=== PATIENT | female | born 1950 | race Caucasian/White ===

== ENCOUNTER 2022-12-20 17:39 | Observation (INO) ==
[2022-12-20] MEDS ORDERED: IOPAMIDOL 100 ML BOTTLE IV ONE (17:40)
--- NOTE | 2022-12-20 18:08 | Emergency Department Note ---
HPI General Chief complaint: Dizziness Stated complaint: Dizziness Time Seen by Provider: 12/20/22 17:50 Source: patient Mode of arrival: ambulatory Limitations: no limitations History of Present Illness HPI Narrative: Narrative: Patient is a 72 year old female with a history of hypertension and hypercholesterolemia who presents to the emergency department due to vertigo. She states that at noon she began to feel like she was on a boat. She states that it felt like she was moving even when she wasn't. She had an episode like this 3 weeks ago, but it went away. She states that because it happened again today she decided to come to the emergency department. It seemed to start when she turned her head, and starts to go away when she is lying still. She states that otherwise it seems to be pretty constant. She denies any other symptoms. Related Data Home Medications Medication Instructions Recorded Confirmed levothyroxine 25 mcg capsule 25 mcg PO QDAY 08/17/21 11/09/22 losartan 50 mg-hydrochlorothiazide 1 tab PO QDAY 08/17/21 11/09/22 12.5 mg tablet escitalopram oxalate 10 mg tablet mg PO 11/18/21 11/09/22 simvastatin 20 mg tablet 20 mg PO QDAY cholesterol 11/18/21 11/09/22 Previous Rx's Medication Instructions Recorded albuterol sulfate 90 mcg/actuation 2 puff inhalation Q6H PRN cough, 11/09/22 aerosol inhaler (ProAir HFA) shortness of breath, wheezing #8.5 grams Allergies Allergy/AdvReac Type Severity Reaction Status Date / Time codeine Allergy Unknown Unknown Verified 12/20/22 17:45 Sulfa (Sulfonamide Allergy Unknown Unknown Verified 12/20/22 17:45 Antibiotics) Review of Systems ROS ROS Narrative: Narrative: Constitutional: Denies fever or weakness Eyes: Denies vision change ENT ED: Denies throat pain, hearing loss or rhinorrhea Cardiovascular: Denies chest pain or palpitations Respiratory: Denies shortness of breath or cough Gastrointestinal: Denies abdominal pain, nausea, vomiting, diarrhea, constipation, hematochezia or melena Musculoskeletal: Denies back pain or myalgia Integumentary: Denies rash or lesions Neurological: Reports dizziness; Denies headache, weakness, numbness, confusion or abnormal gait PFS Narrative Patient History Narrative: Narrative: Medical/Surgical/Family History All Active Problems (Updated 12/20/22 @ 19:27 by Shubham Kumari DO) Brain TIA (Acute) Dizziness (Acute) Left acute otitis media (Acute) Cellulitis (Acute) Dog bite (Acute) Medical History Cellulitis Dog bite Social History Smoking Status: Former smoker Exam Narrative Narrative: Narrative: General Limitations: no limitations General appearance: Present alert and in no apparent distress; Absent anxious, appears intoxicated or sleepy Head Head: Present atraumatic and normocephalic Eye Eye: Present PERRL, EOMI and visual butt intact; Absent scleral icterus or nystagmus ENT ENT: Present mucous membranes moist; Absent nasal congestion Neck Neck: Present full ROM and trachea midline Chest Chest: Present normal inspection and symmetric chest wall rise Respiratory Respiratory: Present normal lung sounds bilaterally; Absent respiratory distress, rales/crackles, wheezes, stridor or accessory muscle use Cardiovascular Cardiovascular: Present regular rate, normal rhythm and normal heart sounds Adbominal Abdominal: Present soft; Absent distention Extremities Extremities: Present normal inspection and full ROM; Absent pedal edema or pretibial edema Back Back: Present normal inspection and full ROM Neurological Neurological: Present alert, oriented X3, CN II-XII intact, normal gait, reflexes normal and other (Negative test of skew, no nystagmus, no ataxia); Absent motor sensory deficit Psychiatric Psychiatric: Present normal affect and normal mood Skin Skin: Present warm (WNL), dry and normal color Course Vital Signs Vital signs: Vital Signs Temperature 98.2 F 12/20/22 17:43 Pulse Rate 64 12/20/22 17:43 Respiratory Rate 20 12/20/22 17:43 Blood Pressure 158/85 12/20/22 17:43 Pulse Oximetry (%) 98 12/20/22 17:43 Oxygen Delivery Method Room Air 12/20/22 17:43 Temperature 98.2 F 12/20/22 17:43 Pulse Rate 59 L 12/20/22 18:57 Respiratory Rate 20 12/20/22 17:43 Blood Pressure 127/75 12/20/22 19:01 Pulse Oximetry (%) 92 12/20/22 18:57 Oxygen Delivery Method Room Air 12/20/22 18:16 [facility] MDM Narrative Medical decision making narrative: Narrative: Patient is a 72 year old female presenting to the emergency department for dizziness. A stroke alert was called given onset of symptoms 6 hours prior to arrival. I did speak with telestroke and they recommended admission for MRI and echocardiogram after ED work-up. They also recommended aspirin and plavix. CT head is negative for acute findings. CT angio head and neck are also negative for acute findings. Initial labs are unremarkable. Patient has been signed out to Dr. Kumari. Lab Data 12/20/22 18:30 Labs: Lab Results 12/20/22 12/20/22 12/20/22 Range/Units 18:28 18:29 18:30 WBC 8.0 (4.5-11.0) K/mcL RBC 4.38 (3.59-5.38) M/mcL Hgb 13.3 (11.2-15.7) g/dL Hct 39.0 (34.1-44.9) % POC Hct 39.0 (36-48) MCV 89.0 (80.0-100.0) fL MCH 30.4 (26.0-34.0) pg MCHC 34.1 (31.0-36.0) g/dL RDW 13.2 (11.5-14.5) % Plt Count 155 (140-440) K/mcL MPV 9.7 (8.8-12.5) fL Immature Gran % (Auto) 0.1 (0.0-0.5) % Neut % (Auto) 36.0 L (38.0-78.0) % Lymph % (Auto) 57.2 H (15.5-49.0) % [place] % (Auto) 4.2 (1.0-12.0) % Eos % (Auto) 1.9 (0.0-7.0) % Baso % (Auto) 0.6 (0.0-2.0) % Lymph # (Auto) 4.60 (1.50-4.80) K/mcL [place] # (Auto) 0.34 (0.10-0.90) K/mcL Eos # (Auto) 0.15 (0.00-0.70) K/mcL Baso # (Auto) 0.05 (0.00-0.30) K/mcL Immature Gran # 0.01 (0.00-0.05) K/mcl Absolute Neutrophils 2.89 (1.80-8.00) K/mcL APTT (20.0-37.0) sec POC Sodium 140 (133-145) POC Potassium 3.9 (3.3-5.1) POC Chloride 103 (96-108) POC Total CO2 26.0 (22-30) POC BUN 22 H (6-20) POC Creatinine 1.1 (0.6-1.2) POC Glucose 97 (70-105) POC WB Ioniz Calcium 1.12 L (1.16-1.32) POC Troponin I < 0.02 (0.00-0.08) 12/20/22 Range/Units 18:30 WBC (4.5-11.0) K/mcL RBC (3.59-5.38) M/mcL Hgb (11.2-15.7) g/dL Hct (34.1-44.9) % POC Hct (36-48) MCV (80.0-100.0) fL MCH (26.0-34.0) pg MCHC (31.0-36.0) g/dL RDW (11.5-14.5) % Plt Count (140-440) K/mcL MPV (8.8-12.5) fL Immature Gran % (Auto) (0.0-0.5) % Neut % (Auto) (38.0-78.0) % Lymph % (Auto) (15.5-49.0) % [place] % (Auto) (1.0-12.0) % Eos % (Auto) (0.0-7.0) % Baso % (Auto) (0.0-2.0) % Lymph # (Auto) (1.50-4.80) K/mcL [place] # (Auto) (0.10-0.90) K/mcL Eos # (Auto) (0.00-0.70) K/mcL Baso # (Auto) (0.00-0.30) K/mcL Immature Gran # (0.00-0.05) K/mcl Absolute Neutrophils (1.80-8.00) K/mcL APTT 30.0 (20.0-37.0) sec POC Sodium (133-145) POC Potassium (3.3-5.1) POC Chloride (96-108) POC Total CO2 (22-30) POC BUN (6-20) POC Creatinine (0.6-1.2) POC Glucose (70-105) POC WB Ioniz Calcium (1.16-1.32) POC Troponin I (0.00-0.08) Discharge Plan Patient/Caregiver Discharge Instructions Pt seen by SEMICONDUCTOR DIES LOADER/PA only: No Clinical Impression: Brain TIA, Dizziness Patient Disposition: Still a Patient Condition: Good Follow up with: Usman Cowan [Primary Care Provider] - Prescriptions: No Action levothyroxine 25 mcg capsule 25 mcg PO QDAY losartan-hydrochlorothiazide 50-12.5 mg tablet 1 tab PO QDAY escitalopram oxalate 10 mg tablet PO simvastatin 20 mg tablet 20 mg PO QDAY albuterol sulfate [ProAir HFA] 90 mcg/actuation HFA aerosol inhaler 2 puff inhalation Q6H PRN (Reason: cough, shortness of breath, wheezing) Qty: 8.5 0RF Rx Instructions: administer with spacer
--- NOTE | 2022-12-20 18:26 | Cat Scan Report ---
CLINICAL INFORMATION: Code stroke COMPARISON: None. TECHNIQUE: 2.5 mm helical slices were obtained in the skull base to vertex. Following reconstruction, axial reformatted images were reviewed at bone and parenchymal windows. The exam was performed using radiation dose optimization techniques including, but not limited to, automated exposure control, adjustment of the mA and/or kV according to patient size and use of iterative reconstruction technique. FINDINGS: The ventricles, sulci, fissures, and cisterns are symmetrically enlarged compatible with mild age-related atrophy. No extra-axial fluid collections are identified. Mild patchy chronic ischemic changes, in the deep cerebral white matter, are expected for age. There is no hemorrhage, mass effect, or edema. Bone windows show no osseous abnormality. IMPRESSION: Mild atrophy and chronic ischemic changes in the deep cerebral white matter-expected for age. No acute findings Complete opacification of sphenoid sinus compatible with sphenoid sinusitis-new from [address] Interpreted and Authenticated by: Ghanshyam Taylor 12/20/22
[2022-12-20 18:34] LABS: POC Calcium, Ionized 1.12 (1.16-1.32); POC Creatinine 1.1 (0.6-1.2); POC Potassium 3.9 (3.3-5.1)
[2022-12-20 19:14] LABS: Basophils # (Auto) 0.05 K/mcL (0.00-0.30); Basophils % (Auto) 0.6 % (0.0-2.0); Eosinophils # (Auto) 0.15 K/mcL (0.00-0.70); Eosinophils % (Auto) 1.9 % (0.0-7.0); Hemoglobin 13.3 g/dL (11.2-15.7); Lymphocytes % (Auto) 57.2 % (15.5-49.0); Mean Corpuscular HGB Conc 34.1 g/dL (31.0-36.0); Mean Platelet Volume 9.7 fL (8.8-12.5); Monocytes # (Auto) 0.34 K/mcL (0.10-0.90); Monocytes % (Auto) 4.2 % (1.0-12.0); Platelet Count 155 K/mcL (140-440); RBC 4.38 M/mcL (3.59-5.38); Red Cell Distribution Width 13.2 % (11.5-14.5)
[2022-12-20 19:25] LABS: ALT/SGPT 10 U/L (<40); AST/SGOT 14 U/L (<32); Albumin 3.7 gm/dL (3.2-5.2); Alkaline Phosphatase 78 U/L (39-117); Bilirubin,Direct < 0.2 mg/dL (0-0.3); Bilirubin,Total 0.6 mg/dL (0.1-1.0); Globulin 3.2 gm/dL (2.2-3.7)
--- NOTE | 2022-12-20 19:27 | Emergency Department Note ---
Course Course Course Narrative: I assumed care of patient at 1900 pending discussion with hospitalist for possible admission. Case was discussed with hospitalist, Dr. Nunez, who has agreed to admit the patient for TIA as she will need a MRI and fasting lipid panels. Vital Signs Vital signs: Vital Signs Temperature 98.2 F 12/20/22 17:43 Pulse Rate 64 12/20/22 17:43 Respiratory Rate 20 12/20/22 17:43 Blood Pressure 158/85 12/20/22 17:43 Pulse Oximetry (%) 98 12/20/22 17:43 Oxygen Delivery Method Room Air 12/20/22 17:43 Temperature 98.2 F 12/20/22 17:43 Pulse Rate 59 L 12/20/22 18:57 Respiratory Rate 20 12/20/22 17:43 Blood Pressure 127/75 12/20/22 19:01 Pulse Oximetry (%) 92 12/20/22 18:57 Oxygen Delivery Method Room Air 12/20/22 18:16 MDM MDM Narrative Medical decision making narrative: Narrative: Differential Diagnosis Differential Diagnosis: TIA, dizziness Medical Records Medical records reviewed: Yes I reviewed the patient's medical records. Lab Data Lab results reviewed: Yes I reviewed the patient's lab results. 12/20/22 18:30 Labs: Lab Results 12/20/22 12/20/22 12/20/22 Range/Units 18:28 18:29 18:30 WBC 8.0 (4.5-11.0) K/mcL RBC 4.38 (3.59-5.38) M/mcL Hgb 13.3 (11.2-15.7) g/dL Hct 39.0 (34.1-44.9) % POC Hct 39.0 (36-48) MCV 89.0 (80.0-100.0) fL MCH 30.4 (26.0-34.0) pg MCHC 34.1 (31.0-36.0) g/dL RDW 13.2 (11.5-14.5) % Plt Count 155 (140-440) K/mcL MPV 9.7 (8.8-12.5) fL Immature Gran % (Auto) 0.1 (0.0-0.5) % Neut % (Auto) 36.0 L (38.0-78.0) % Lymph % (Auto) 57.2 H (15.5-49.0) % [place] % (Auto) 4.2 (1.0-12.0) % Eos % (Auto) 1.9 (0.0-7.0) % Baso % (Auto) 0.6 (0.0-2.0) % Lymph # (Auto) 4.60 (1.50-4.80) K/mcL [place] # (Auto) 0.34 (0.10-0.90) K/mcL Eos # (Auto) 0.15 (0.00-0.70) K/mcL Baso # (Auto) 0.05 (0.00-0.30) K/mcL Immature Gran # 0.01 (0.00-0.05) K/mcl Absolute Neutrophils 2.89 (1.80-8.00) K/mcL APTT (20.0-37.0) sec POC Sodium 140 (133-145) POC Potassium 3.9 (3.3-5.1) POC Chloride 103 (96-108) POC Total CO2 26.0 (22-30) POC BUN 22 H (6-20) POC Creatinine 1.1 (0.6-1.2) POC Glucose 97 (70-105) POC WB Ioniz Calcium 1.12 L (1.16-1.32) Total Bilirubin (0.1-1.0) mg/dL Direct Bilirubin (0-0.3) mg/dL AST (<32) U/L ALT (<40) U/L Alkaline Phosphatase (39-117) U/L Total Protein (5.9-8.4) gm/dL Albumin (3.2-5.2) gm/dL Globulin (2.2-3.7) gm/dL POC Troponin I < 0.02 (0.00-0.08) 12/20/22 12/20/22 Range/Units 18:30 18:30 WBC (4.5-11.0) K/mcL RBC (3.59-5.38) M/mcL Hgb (11.2-15.7) g/dL Hct (34.1-44.9) % POC Hct (36-48) MCV (80.0-100.0) fL MCH (26.0-34.0) pg MCHC (31.0-36.0) g/dL RDW (11.5-14.5) % Plt Count (140-440) K/mcL MPV (8.8-12.5) fL Immature Gran % (Auto) (0.0-0.5) % Neut % (Auto) (38.0-78.0) % Lymph % (Auto) (15.5-49.0) % [place] % (Auto) (1.0-12.0) % Eos % (Auto) (0.0-7.0) % Baso % (Auto) (0.0-2.0) % Lymph # (Auto) (1.50-4.80) K/mcL [place] # (Auto) (0.10-0.90) K/mcL Eos # (Auto) (0.00-0.70) K/mcL Baso # (Auto) (0.00-0.30) K/mcL Immature Gran # (0.00-0.05) K/mcl Absolute Neutrophils (1.80-8.00) K/mcL APTT 30.0 (20.0-37.0) sec POC Sodium (133-145) POC Potassium (3.3-5.1) POC Chloride (96-108) POC Total CO2 (22-30) POC BUN (6-20) POC Creatinine (0.6-1.2) POC Glucose (70-105) POC WB Ioniz Calcium (1.16-1.32) Total Bilirubin 0.6 (0.1-1.0) mg/dL Direct Bilirubin < 0.2 (0-0.3) mg/dL AST 14 (<32) U/L ALT 10 (<40) U/L Alkaline Phosphatase 78 (39-117) U/L Total Protein 6.9 (5.9-8.4) gm/dL Albumin 3.7 (3.2-5.2) gm/dL Globulin 3.2 (2.2-3.7) gm/dL POC Troponin I (0.00-0.08) Radiology Data Radiology results reviewed: Yes I reviewed the patient's radiology results. Radiology results narrative: CTA of the head and neck obtained with image reviewed myself, no acute findings Core Measures AMI Core Measures Followed: Yes Discharge Plan Patient/Caregiver Discharge Instructions Pt seen by DIRECTOR OF VOCATIONAL GUIDANCE/PA only: No Clinical Impression: Brain TIA, Dizziness Patient Disposition: Xfer As Outpt/Obs ([facility]) Condition: Good Follow up with: Usman Cwoan [Primary Care Provider] - Prescriptions: No Action levothyroxine 25 mcg capsule 25 mcg PO QDAY losartan-hydrochlorothiazide 50-12.5 mg tablet 1 tab PO QDAY escitalopram oxalate 10 mg tablet PO simvastatin 20 mg tablet 20 mg PO QDAY albuterol sulfate [ProAir HFA] 90 mcg/actuation HFA aerosol inhaler 2 puff inhalation Q6H PRN (Reason: cough, shortness of breath, wheezing) Qty: 8.5 0RF Rx Instructions: administer with spacer
[2022-12-20 20:52] LABS: Appearance,Urine HAZY (Clear); Bilirubin,Urine Negative (Negative); Color,Urine YELLOW; Culture Indicated,Urine yes; Glucose,Urine (UA) Negative (Negative); Ketones,Urine Negative (Negative); Leukocyte Esterase,Urine 500 /uL (Negative); Nitrate,Urine Negative (Negative); Protein,Urine Negative (Negative); Specific Gravity,Urine 1.051 (1.000-1.035); Urine Blood Negative (Negative); Urine RBC 4 /hpf (0-3); Urine Squamous Epithelial Cell 4 /hpf (0-4); Urine WBC 33 /hpf (0-4); Urobilinogen,Urine Negative
--- NOTE | 2022-12-20 20:57 | Internal Med History&Physical ---
HPI History of Present Illness Patient information: Note initiated : 12/20/22 at 8:56 pm Service Date, if different from initiated Date: [] Patient: Liz Trujillo 72 y/o F admitted on for Dizziness. Chief Complaint: [] History of present illness: Ms. Trujillo is a 72 year old female with a history of hypertension, hyperlipidemia, hypothyroidism, depression who presented to the emergency department after experiencing difficulty walking. The patient says that her symptoms began about 12:30 PM today and persisted until she was in the emergency department. Her gait difficulties gradually improved but did not resolve after several hours prompting her decision to go to the emergency department. The patient said that she had a similar episode 2 to 3 weeks ago that only lasted an hour. In the emergency department, the patient underwent a stroke work-up with CT head without contrast that did not show any acute changes, CTA head and neck for which report is still pending at the time of admission however the ED provider says that there are no acute changes. Stroke neurology was consulted, reviewed the work-up and recommended admission for an MRI brain, echocardiogram, cardiac/vascular sonographer and consideration of benign paroxysmal positional vertigo if the stroke work-up was negative. Hospital medicine was consulted for admission. At the time of admission the patient was back to her baseline. Review of systems Constitutional: no fever, fatigue, or weight loss Eyes: no vision changes or pain Cardiovascular: no chest pain, no palpitations Respiratory: no cough or dyspnea Gastrointestinal: no abdominal pain, no nausea, vomiting, or diarrhea Genitourinary: no dysuria or difficulty voiding Musculoskeletal: no arthralgia or myalgia Integumentary: no skin lesion or wound Neurological: Resolved gait disturbance, no focal weakness or sensory deficits Psychiatric: no anxiety or depression Physical exam Head: Atraumatic, normal inspection. Eyes: normal appearance, no scleral icterus. Neck: full ROM Respiratory: no respiratory distress. Cardiovascular: normal rate and rhythm, S1, S2. GI/Abdominal: soft, nontender, no guarding. Extremities: full range of motion, nontender. Neurological: CN II-XII intact, intact motor, intact sensation. Psychiatric: normal mood. Skin: warm, normal color PFSH PFSH All Active Problems (Updated 12/20/22 @ 19:27 by Shubham Kumari DO) Brain TIA (Acute) Dizziness (Acute) Left acute otitis media (Acute) Cellulitis (Acute) Dog bite (Acute) Medical History Cellulitis Dog bite Social History smoking status: Former smoker MEDS/ALLERGIES Home Medications and Allergies Home Medications Medication Instructions Recorded Confirmed Type levothyroxine 25 mcg capsule 25 mcg PO QDAY 08/17/21 11/09/22 History losartan 50 mg-hydrochlorothiazide 1 tab PO QDAY 08/17/21 11/09/22 History 12.5 mg tablet escitalopram oxalate 10 mg tablet mg PO 11/18/21 11/09/22 History simvastatin 20 mg tablet 20 mg PO QDAY cholesterol 11/18/21 11/09/22 History albuterol sulfate 90 mcg/actuation 2 puff inhalation Q6H PRN cough, 11/09/22 11/09/22 Rx aerosol inhaler (ProAir HFA) shortness of breath, wheezing #8.5 grams Allergies Allergy/AdvReac Type Severity Reaction Status Date / Time codeine Allergy Unknown Unknown Verified 12/20/22 17:45 Sulfa (Sulfonamide Allergy Unknown Unknown Verified 12/20/22 17:45 Antibiotics) EXAM Constitutional Vitals: Temp Pulse Resp BP Pulse Ox O2 Del Method 98.2 F 67 16 153/87 97 Room Air 12/20/22 17:43 12/20/22 20:49 12/20/22 20:49 12/20/22 20:49 12/20/22 20:49 12/20/22 18:16 DATA Data Completed and Pending Labs: Labs from last 24 hours 12/20/22 12/20/22 12/20/22 19:46 18:30 18:30 WBC RBC Hgb Hct POC Hct MCV MCH MCHC RDW Plt Count MPV Immature Gran % (Auto) Neut % (Auto) Lymph % (Auto) [place] % (Auto) Eos % (Auto) Baso % (Auto) Lymph # (Auto) [place] # (Auto) Eos # (Auto) Baso # (Auto) Immature Gran # Absolute Neutrophils APTT 30.0 POC Sodium POC Potassium POC Chloride POC Total CO2 POC BUN POC Creatinine POC Glucose POC WB Ioniz Calcium Total Bilirubin 0.6 Direct Bilirubin < 0.2 AST 14 ALT 10 Alkaline Phosphatase 78 Total Protein 6.9 Albumin 3.7 Globulin 3.2 Urine Color Yellow Urine Appearance Hazy A Urine pH 5.0 Ur Specific [place] 1.051 Urine Protein Negative Urine Glucose (UA) Negative Urine Ketones Negative Urine Occult Blood Negative Urine Nitrate Negative Urine Bilirubin Negative Urine Urobilinogen Negative Ur Leukocyte Esterase 500 A Urine RBC 4 H Urine WBC 33 H Ur Squamous Epith Cells 4 Urine Bacteria None Ur Culture Indicated? yes POC Troponin I 12/20/22 12/20/22 12/20/22 18:30 18:29 18:28 WBC 8.0 RBC 4.38 Hgb 13.3 Hct 39.0 POC Hct 39.0 MCV 89.0 MCH 30.4 MCHC 34.1 RDW 13.2 Plt Count 155 MPV 9.7 Immature Gran % (Auto) 0.1 Neut % (Auto) 36.0 L Lymph % (Auto) 57.2 H [place] % (Auto) 4.2 Eos % (Auto) 1.9 Baso % (Auto) 0.6 Lymph # (Auto) 4.60 [place] # (Auto) 0.34 Eos # (Auto) 0.15 Baso # (Auto) 0.05 Immature Gran # 0.01 Absolute Neutrophils 2.89 APTT POC Sodium 140 POC Potassium 3.9 POC Chloride 103 POC Total CO2 26.0 POC BUN 22 H POC Creatinine 1.1 POC Glucose 97 POC WB Ioniz Calcium 1.12 L Total Bilirubin Direct Bilirubin AST ALT Alkaline Phosphatase Total Protein Albumin Globulin Urine Color Urine Appearance Urine pH Ur Specific [place] Urine Protein Urine Glucose (UA) Urine Ketones Urine Occult Blood Urine Nitrate Urine Bilirubin Urine Urobilinogen Ur Leukocyte Esterase Urine RBC Urine WBC Ur Squamous Epith Cells Urine Bacteria Ur Culture Indicated? POC Troponin I < 0.02 A/P Narrative A/P Narrative: Assessment: 72 year old female with a history of hypertension, hyperlipidemia, hypothyroidism, depression admitted for a TIA work-up. #Possible TIA versus less likely acute ischemic stroke #Hypertension #Hyperlipidemia #Depression Plan -Start aspirin 81 mg daily. -Start atorvastatin 80 mg daily. -MRI brain. -Echocardiogram. -conveyor monitor. -Neurochecks every 4 hours. -Home medication reconciliation, continue important meds. -Regular diet. -CODE STATUS: Full -Disposition: Observation PCU for close monitoring, frequent neurochecks. Time Spent With Patient Time: Total time spent is greater than 50% in coordination of care (as documented) at patient's floor/unit and/or counseling patient:
[2022-12-20] MEDS ORDERED: ACETAMINOPHEN 325 MG TABLET PO PRN (21:55)
[2022-12-20] MEDS ORDERED: SENNOSIDES 1 TABLET PO PRN (21:55)
[2022-12-20] MEDS ORDERED: LACTULOSE 20 GM/30 ML ORAL.SOL PO PRN (21:55)
[2022-12-20] MEDS ORDERED: ONDANSETRON 4 MG/2 ML VIAL IV PRN (21:55)
[2022-12-20] MEDS ORDERED: ASPIRIN 81 MG TAB.CHEW ONE (22:03)
[2022-12-20] MEDS: ASPIRIN 81 MG TAB.CHEW CHEWED SCH (22:12)
--- NOTE | 2022-12-21 02:57 | Cat Scan Report ---
CLINICAL INFORMATION: Retention and vertigo. Evaluate for CVA COMPARISON: None. TECHNIQUE: 80 cc of Isovue-370 were injected intravenously , and using SmartPrep to maximize cerebral arterial opacification, 0.625 mm helical slices were obtained from the skull base through the cerebral vertex. Following reconstruction , sagittal, coronal and axial reformatted images were processed and reviewed at multiple windows and levels. 3D volume rendered and MIP images were acquired at a independent workstation. The exam was performed using radiation dose optimization techniques including, but not limited to, automated exposure control, adjustment of the mA and/or kV according to patient size and use of iterative reconstruction technique. FINDINGS: The intracranial internal carotid, vertebral, basilar, anterior, middle and left posterior cerebral arteries and their branches are well-opacified and normal in contour and caliber without significant stenosis, occlusion or other pathology. 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 Superficial/deep cerebral veins and deep venous sinuses are widely patent IMPRESSION: Cerebral arteries are widely patent no evidence of occlusion or significant stenosis. Complete opacification of the left sphenoid sinus compatible with sphenoid sinusitis Interpreted and Authenticated by: Ghanshyam Taylor 12/21/22
--- NOTE | 2022-12-21 03:02 | Cat Scan Report ---
CLINICAL INFORMATION: Code stroke-vertigo COMPARISON: None. TECHNIQUE: 80 cc of Isovue-300 were injected intravenously followed by 40 cc of normal saline flush. Using SmartPrep, 0.625 helical slices were obtained from the thoracic aortic arch through the soboba of [place]f. Following reconstruction, 2.5 mm sagittal, coronal and axial reformatted images were processed. MIPS , 3-D volume rendering and CPR images were also constructed. The exam was performed using radiation dose optimization techniques including, but not limited to, automated exposure control, adjustment of the mA and/or kV according to patient size and use of iterative reconstruction technique. FINDINGS: The thoracic aortic arch is normal diameter with minimal intimal thickening. Left vertebral artery originates directly from the aortic arch-normal variant. Aortic branching is, otherwise conventional. The brachiocephalic, both subclavian, both common, internal and external carotid and both vertebral arteries are widely patent without significant abnormality. No soft tissue abnormality. At C5-6 and C6-7 moderate broad disc complexes with left-sided asymmetry results in mild central canal and moderate left IV foraminal narrowing. IMPRESSION: Normal thoracic aortic arch, brachycephalic, all carotid, vertebral and subclavian arteries. Degenerative stenosis at C5-6 and C6-7 resulting in mild central canal and moderate left IV foraminal narrowing. There is possible patient of the exiting left C6 and left C7 nerve roots Interpreted and Authenticated by: Ghanshyam Taylor 12/21/22
[2022-12-21 06:45] LABS: HDL Cholesterol 48 mg/dL (>40); LDL Cholesterol,Calculated 89 mg/dL (<100); Non-HDL Cholesterol 116 mg/dL (<130); Triglycerides 137 mg/dL (<150)
[2022-12-21] MEDS: 0.9 % SODIUM CHLORIDE 10 ML SYRINGE IV SCH ×2 (06:46→06:47)
[2022-12-21] MEDS ORDERED: LEVOTHYROXINE 50 MCG TABLET PO SCH (07:30)
[2022-12-21 08:17] LABS: Estimated Average Glucose(eAG) 91 mg/dL; Hemoglobin A1C 4.8 % Hgb (4.0-6.0)
[2022-12-21] MEDS ORDERED: LOSARTAN 50 MG TABLET PO SCH (09:00)
[2022-12-21] MEDS ORDERED: ATORVASTATIN 40 MG TABLET PO SCH (09:00)
[2022-12-21] MEDS ORDERED: ESCITALOPRAM 10 MG TABLET PO SCH (09:00)
[2022-12-21] MEDS ORDERED: HYDROCHLOROTHIAZIDE 12.5 MG CAPSULE PO SCH (09:00)
--- NOTE | 2022-12-21 09:25 | Magnetic Resonance Report ---
CLINICAL INFORMATION: Episode of vertigo and dizziness. Evaluate for acute CVA COMPARISON: Head CT 12/20/2022 TECHNIQUE:Sagittal T1 FLAIR, axial T2 FLAIR propeller, diffusion ADC weighted images were acquired. FINDINGS: The ventricles, sulci, fissures and cisterns are symmetrically enlarged compatible with mild age-related atrophy. Mild patchy chronic ischemic changes in the deep central white matter are expected for age. No regions of restricted effusion to suggest acute infarct. No hemorrhage mass effect or edema. The signal void in intracerebral arteries, extra-axial cranial nerves, pituitary, and orbits are normal. There is complete opacification of the left sphenoid sinus compatible with severe sinusitis. IMPRESSION: Mild atrophy centimeters chronic ischemic changes throughout white matter expected for age. No evidence of acute CVA. Severe left sphenoid sinusitis Interpreted and Authenticated by: Ghanshyam Taylor 12/21/22
[2022-12-21] MEDS: ASPIRIN 81 MG TAB.CHEW CHEWED SCH (10:10)
[2022-12-21] MEDS ORDERED: ALBUTEROL SULFATE 60 PUFF INHALER INH PRN (10:21)
--- NOTE | 2022-12-21 10:50 | Discharge Summary ---
Discharge Provider Provider IMPORTANT FOLLOW-UP INFORMATION FOR PCP: Patient information: Note initiated : 12/21/22 at 10:48 am Service Date, if different from initiated Date: [] Patient: Liz Trujillo 72 y/o F admitted on 12/20/22 for Dizziness. Chief Complaint: [] Date of admission: 12/20/22 21:42 Discharge date: 12/21/22 Primary care physician: Usman Cowan Consults: 12/20/22 Consult to Physician [CONS] Stat Comment: Consulting Provider: Feng Ahmadi Reason For Exam: Physician to Consult 12/20/22 18:16 Consult to Physician [CONS] Stat Comment: Consulting Provider: Telestroke-[facility] Reason For Exam: Physician to Consult COURSE Hospital Course Hospital course: Ms. Trujillo is a 72 year old female with a history of hypertension, hyperlipidemia, hypothyroidism, depression who presented to the emergency department after experiencing difficulty walking. The patient says that her symptoms began about 12:30 PM today and persisted until she was in the emergency department. Her gait difficulties gradually improved but did not resolve after several hours prompting her decision to go to the emergency department. The patient said that she had a similar episode 2 to 3 weeks ago that only lasted an hour. In the emergency department, the patient underwent a stroke work-up with CT head without contrast that did not show any acute changes, CTA head and neck for which report is still pending at the time of admission however the ED provider says that there are no acute changes. Stroke neurology was consulted, reviewed the work-up and recommended admission for an MRI brain, echocardiogram, repairer controller tester and consideration of benign paroxysmal positional vertigo if the stroke work-up was negative. Hospital medicine was consulted for admissio n. At the time of admission the patient was back to her baseline. 12/21 Vital stable overnight, no recurrence of the patient's vestibular symptoms. MRI brain did not show any acute stroke, telemetry shows sinus rhythm. Transthoracic echocardiogram performed however report still pending at the time of discharge. Patient is discharged to home. Outpatient repairer controller tester ordered at discharge. Patient is discharged on aspirin and atorvastatin, discontinued prior to simvastatin. The patient's other home medications were continued as before hospitalization. Follow-up with patient's primary care provider, follow-up pending echocardiogram report. Physical exam Head: Atraumatic, normal inspection. Eyes: normal appearance, no scleral icterus. Neck: full ROM Respiratory: no respiratory distress. Cardiovascular: normal rate and rhythm, S1, S2. GI/Abdominal: soft, nontender, no guarding. Extremities: full range of motion, nontender. Neurological: CN II-XII intact, intact motor, intact sensation. Psychiatric: normal mood. Skin: warm, normal color Discharge diagnosis: Resolved ataxia versus vertigo Time Spent with Patient Time attestation: Total time spent providing and/or coordinating discharge services: Time spent: Less than 30 minutes EXAM Constitutional Vitals: Temp Pulse Resp BP Pulse Ox O2 Del Method 98.1 F 58 L 14 111/60 100 Room Air 12/21/22 07:06 12/21/22 07:06 12/21/22 07:06 12/21/22 07:06 12/21/22 07:06 12/21/22 07:06 Discharge Data Data Completed and Pending Labs on day of discharge: Labs from last 24 hours 12/21/22 12/20/22 12/20/22 05:05 19:46 18:30 WBC RBC Hgb Hct POC Hct MCV MCH MCHC RDW Plt Count MPV Immature Gran % (Auto) Neut % (Auto) Lymph % (Auto) [place] % (Auto) Eos % (Auto) Baso % (Auto) Lymph # (Auto) [place] # (Auto) Eos # (Auto) Baso # (Auto) Immature Gran # Absolute Neutrophils APTT POC Sodium POC Potassium POC Chloride POC Total CO2 POC BUN POC Creatinine POC Glucose Hemoglobin A1c 4.8 Estim Average Glucose 91 POC WB Ioniz Calcium Total Bilirubin 0.6 Direct Bilirubin < 0.2 AST 14 ALT 10 Alkaline Phosphatase 78 Total Protein 6.9 Albumin 3.7 Globulin 3.2 Triglycerides 137 Cholesterol 164 LDL Cholesterol, Calc 89 Non-HDL Cholesterol 116 HDL Cholesterol 48 Urine Color Yellow Urine Appearance Hazy A Urine pH 5.0 Ur Specific [place] 1.051 Urine Protein Negative Urine Glucose (UA) Negative Urine Ketones Negative Urine Occult Blood Negative Urine Nitrate Negative Urine Bilirubin Negative Urine Urobilinogen Negative Ur Leukocyte Esterase 500 A Urine RBC 4 H Urine WBC 33 H Ur Squamous Epith Cells 4 Urine Bacteria None Ur Culture Indicated? yes POC Troponin I 12/20/22 12/20/22 12/20/22 18:30 18:30 18:29 WBC 8.0 RBC 4.38 Hgb 13.3 Hct 39.0 POC Hct 39.0 MCV 89.0 MCH 30.4 MCHC 34.1 RDW 13.2 Plt Count 155 MPV 9.7 Immature Gran % (Auto) 0.1 Neut % (Auto) 36.0 L Lymph % (Auto) 57.2 H [place] % (Auto) 4.2 Eos % (Auto) 1.9 Baso % (Auto) 0.6 Lymph # (Auto) 4.60 [place] # (Auto) 0.34 Eos # (Auto) 0.15 Baso # (Auto) 0.05 Immature Gran # 0.01 Absolute Neutrophils 2.89 APTT 30.0 POC Sodium 140 POC Potassium 3.9 POC Chloride 103 POC Total CO2 26.0 POC BUN 22 H POC Creatinine 1.1 POC Glucose 97 Hemoglobin A1c Estim Average Glucose POC WB Ioniz Calcium 1.12 L Total Bilirubin Direct Bilirubin AST ALT Alkaline Phosphatase Total Protein Albumin Globulin Triglycerides Cholesterol LDL Cholesterol, Calc Non-HDL Cholesterol HDL Cholesterol Urine Color Urine Appearance Urine pH Ur Specific [place] Urine Protein Urine Glucose (UA) Urine Ketones Urine Occult Blood Urine Nitrate Urine Bilirubin Urine Urobilinogen Ur Leukocyte Esterase Urine RBC Urine WBC Ur Squamous Epith Cells Urine Bacteria Ur Culture Indicated? POC Troponin I 12/20/22 18:28 WBC RBC Hgb Hct POC Hct MCV MCH MCHC RDW Plt Count MPV Immature Gran % (Auto) Neut % (Auto) Lymph % (Auto) [place] % (Auto) Eos % (Auto) Baso % (Auto) Lymph # (Auto) [place] # (Auto) Eos # (Auto) Baso # (Auto) Immature Gran # Absolute Neutrophils APTT POC Sodium POC Potassium POC Chloride POC Total CO2 POC BUN POC Creatinine POC Glucose Hemoglobin A1c Estim Average Glucose POC WB Ioniz Calcium Total Bilirubin Direct Bilirubin AST ALT Alkaline Phosphatase Total Protein Albumin Globulin Triglycerides Cholesterol LDL Cholesterol, Calc Non-HDL Cholesterol HDL Cholesterol Urine Color Urine Appearance Urine pH Ur Specific [place] Urine Protein Urine Glucose (UA) Urine Ketones Urine Occult Blood Urine Nitrate Urine Bilirubin Urine Urobilinogen Ur Leukocyte Esterase Urine RBC Urine WBC Ur Squamous Epith Cells Urine Bacteria Ur Culture Indicated? POC Troponin I < 0.02 Discharge Plan Patient/Caregiver Discharge Instructions Activity: increase activity as tolerated Diet: Regular Diet Prescriptions: New atorvastatin 40 mg Tablet 80 mg PO DAILY Qty: 60 6RF aspirin 81 mg capsule 81 mg PO QDAY Qty: 60 6RF Continued losartan-hydrochlorothiazide 50-12.5 mg tablet 1 tab PO QDAY escitalopram oxalate 10 mg tablet 20 mg PO DAILY albuterol sulfate [ProAir HFA] 90 mcg/actuation HFA aerosol inhaler 2 puff inhalation Q6H PRN (Reason: cough, shortness of breath, wheezing) Qty: 8.5 0RF Rx Instructions: administer with spacer levothyroxine 50 mcg tablet 50 mcg PO Q48H levothyroxine 50 mcg tablet 75 mcg PO Q48H cyanocobalamin (vitamin B-12) 1,000 mcg Tablet 1,000 mcg PO Q48H acetaminophen [Acetaminophen Extra Strength] 500 mg Tablet 500 mg PO DAILY diphenhydramine-acetaminophen [Tylenol PM Extra Strength] 25-500 mg Tablet 1 tab PO HS Rx Instructions: administer while awake cholecalciferol (vitamin D3) [Vitamin D3] 25 mcg (1,000 unit) Capsule 25 mcg PO Q48H Fortify Women Probiotic 30 billion cell -50 mg Capsule,Delayed Release(Dr/Ec) 1 cap PO DAILY Discontinued simvastatin 20 mg tablet 20 mg PO QDAY Other Ambulatory Orders: Holter Monitor, 48-hour (Routine) Location: None Selected Ordered By: Feng Ahmadi Follow Up Plan Follow up with: Usman Cowan [Primary Care Provider] - Patient Disposition: Home, Self-Care Prognosis: Good Overall status at discharge: patient is back to baseline Discharge Orders: Discharge Order (Routine); Ordered 12/21/22 Ordered By: Feng Ahmadi QUALITY VTE Deep Vein Thrombosis/Pulmonary Embolism Present on Admission: No
--- NOTE | 2022-12-22 07:06 | EKG ---
[facility] Test Date: 2022-12-20 Pat Name: Liz Trujillo Department: ED Room: Gender: Female Carpenter Supervisor: : [id number] Requested By: Cassius Mccray Order Number: [id number] Reading MD: Ghanshyam Pitts M.D. Measurements Intervals [place] Rate: 60 P: 50 FL: 155 QRS: 15 QRSD: 98 T: 15 QT: 402 QTc: 402 Interpretive Statements Sinus rhythm Probable left atrial enlargement Low voltage, precordial leads Electronically Signed On 12-22-2022 7:05:57 PDT by Ghanshyam Pitts M.D. /[id number]
[2022-12-22] MEDS ORDERED: LEVOTHYROXINE 75 MCG TABLET PO SCH (07:30)
[2022-12-22] MEDS ORDERED: LOSARTAN 50 MG TABLET PO SCH (09:00)
[2022-12-22] MEDS ORDERED: LOSARTAN/HCTZ 50/12.5 TABLET PO SCH (09:00)
[2022-12-22] MEDS ORDERED: HYDROCHLOROTHIAZIDE 12.5 MG CAPSULE PO SCH (09:00)
== END 2022-12-21 12:14 | disposition home or self-care (01) ==
LOC: MEDSUR 17:39 → ED 17:39 → MEDSUR 21:54
PROVIDERS: ADMIT Internal Medicine; ATTEND Internal Medicine